=== PATIENT | male | born 2000 | race Caucasian/White ===

== ENCOUNTER → 2021-08-06 07:00 | Outpatient (CLI) | payer OTHER, SELFPAY ==
--- NOTE | 2021-08-06 | DI.MRI.S_ITS ---
PROCEDURE: MR HEAD/BRAIN WO CON INDICATIONS: Postconcussional syndrome TECHNIQUE: Noncontrast axial T1 spin echo, axial T2 fast spin echo, sagittal and axial FLAIR, coronal T2 fast spin echo, axial gradient echo, axial diffusion and ADC through the brain. COMPARISON: None. FINDINGS: Image quality: Excellent. CSF Spaces: Basal cisterns are patent. No extra-axial fluid collections. Ventricles are normal in size and shape. Brain: No intracranial masses or hemorrhage. Sanchez/white matter interface is normal. Brainstem appears normal. Diffusion-weighted images demonstrate no acute ischemic insult. No areas of encephalomalacia. No GRE weighted abnormalities identified in the brain parenchyma. Normal intravascular flow voids are present. Skull and face: Calvarium has normal marrow signal. Orbits appear normal. Sinuses: Mild mucosal thickening noted in the maxillary sinuses. The mastoids are clear. IMPRESSION: No intracranial disease process. Dictated by: Anabel Villarreal MD, PhD on 08/06/2021 at 10:09 Approved by: Anabel Villarreal MD, PhD on 08/06/2021 at 10:11
== END ==
PROVIDERS: PCP Family Medicine; Referring Provider Family Medicine; Visit Provider Family Medicine
DX: F07.81 Postconcussional syndrome (principal); R41.3 Other amnesia; R45.86 Emotional lability; R51.9 Headache, unspecified
CPT/HCPCS: 70551

== ENCOUNTER → 2023-03-05 16:32 | Outpatient (CLI) | payer OTHER, MEDICAID, SELFPAY ==
[2023-03-05 17:37] LABS: Add Manual Diff / Slide Review NO; Basophils Absolute Auto 100 /uL (0-100); Basophils Percent Auto 0.6 % (0-2); Eosinophils Absolute Auto 0 /uL (0-450); Eosinophils Percent Auto 0.5 % (2-4); Hematocrit 44.2 % (41-53); Hemoglobin 15.3 g/dL (13.5-17.5); Lymphocytes Absolute Auto 2100 /uL (1100-4500); Lymphocytes Percent Auto 23.8 % (25-40); Mean Corpuscular HGB Conc 34.7 % (30-36); Mean Corpuscular Hemoglobin 30.5 PG (26-34); Mean Corpuscular Volume 87.9 fL (80-100); Monocytes Absolute Auto 700 /uL (0-900); Monocytes Percent Auto 8.6 % (3-14); Neutrophils Absolute Auto 5800 /uL (1500-7000); Neutrophils Percent Auto 66.5 % (50-75); Platelet Count 311 X10^3/uL (150-400); Red Blood Cell Count 5.03 X10^6/uL (4.5-5.9); Red Cell Distribution Width 14.5 % (11.6-14.8); White Blood Cell Count 8.7 X10^3/uL (4.5-11.0)
[2023-03-05 18:21] LABS: Alanine Aminotransferase 25 IU/L (<50); Albumin 4.9 g/dL (3.5-5.0); Albumin Globulin Ratio 1.3 (1.0-2.8); Alkaline Phosphatase 87 U/L (38-126); Aspartate Aminotransferase 30 IU/L (17-59); BUN Creatinine Ratio 18.3 (6-22); Bilirubin Total 0.7 mg/dL (0.2-1.3); Blood Urea Nitrogen 13 mg/dL (9-20); Carbon Dioxide 25 mmol/L (22-32); Chloride 104 mmol/L (98-107); Estimated Glomerular Filt Rate > 60 mL/min (>60); Globulin 3.8 g/dL (1.7-4.1); Glucose 93 mg/dL (70-100); HEMOLYSIS < 15 (0-50); Sodium 139 mmol/L (137-145); Total Protein 8.7 g/dL (6.3-8.2)
[2023-03-05 18:55] LABS: TSH w/ Reflex to FT4 0.51 uIU/mL (0.47-4.68)
[2023-03-05 19:00] LABS: Urine N gonorrhoeae NOT DETECTED
[2023-03-05 19:03] LABS: Urine Chlamydia NOT DETECTED
[2023-03-05 19:10] LABS: Vitamin B12 416 pg/mL (239-931)
[2023-03-05 20:21] LABS: Hepatitis B Surface Antigen NEGATIVE s/c (NEGATIVE)
[2023-03-05 20:38] LABS: HIV 1 & 2 Ab/Ag 4th Gen Combo NEGATIVE (NEGATIVE); Hep C Virus Ab w/Reflex Quant NEGATIVE s/c (NEGATIVE)
[2023-03-08 08:51] LABS: HSV 2 IGG AB < 0.91 index (0.00-0.90); HSV1IGG < 0.91 index (0.00-0.90); RPR Screen Non Reactive (Non Reactive)
== END ==
PROVIDERS: PCP Family Medicine; Referring Provider Family Medicine; Visit Provider Family Medicine
DX: M79.10 Myalgia, unspecified site (principal); Z72.51 High risk heterosexual behavior
CPT/HCPCS: 36415; 80053; 82607; 84443; 85025; 86592; 86695; 86696; 86803; 87340; 87389; 87491; 87591